=== PATIENT | male | born 2000 | race Caucasian/White ===

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

== ENCOUNTER 2019-01-04 10:01 | Emergency (ER) | payer MEDICAID, SELFPAY ==
[2019-01-04 10:02] VITALS: BP 134/60; PULSE 81; RESP 17; TEMP 36.1; O2SAT 99; BMI 30.4
--- NOTE | 2019-01-04 10:44 | VDLE_ITS ---
Reason For Study: Pain Procedure LEFT Exam performed portable in ED. GSV is normal. A preliminary report was called and/or faxed CFV is compressible, spontaneous, phasic, to Dr. Wade. competent, and demonstrates normal augmentation. FV is compressible, spontaneous, phasic, competent and demonstrates normal augmentation. POP V is compressible, spontaneous, phasic, competent and demonstrates normal augmentation. T/P Trunk is compressible. PTV is compressible. LT PerV is compressible. Hypoechoic, non vascular structure noted Lt Pop Fossa measuring 1.46cm x 1.80cm. Interpretation Summary There is no evidence of left lower extremity deep vein thrombosis. Left great saphenous vein appears patent and compressible segmentally. Left popliteal fossa 1.46 x 1.8cm cystic lesion--possible Cantrell's cyst--clinical correlation would be appropriate. Ordering Physician: Nicole Wade Referring Physician: Agnes Cuellar Performed By: Lisandra Kunz RDCS, RVT
--- NOTE | 2019-01-04 10:55 | RAD_ITS ---
STUDY: X-RAY - LEFT ANKLE REASON FOR EXAM: Male, 18 years old. Left ankle pain and swelling. Lateral bruising. TECHNIQUE: 3 view(s) of the ankle. COMPARISON: None. FINDINGS: Normal visualized distal tibia and fibula. Normal medial and lateral malleoli. Normal tibiotalar articulation and ankle mortise. Normal visualized talus and calcaneus. The visualized subtalar, talonavicular, calcaneocuboid and tarsal articulations are normal. Soft tissue swelling. RAD/Ankle min 3 Views IMPRESSION: Soft tissue swelling. Electronically Signed: Akash Thacker, at 11:20 EDT , Service support ,
--- NOTE | 2019-01-04 11:00 | RAD_ITS ---
STUDY: X-RAY - LEFT FOOT CLINICAL: Male, 18 years old. Medial left foot pain. Lateral bruising. TECHNIQUE: 3 view(s) of the foot. COMPARISON: None. FINDINGS: Normal talus, calcaneus, and tarsal bones. Normal visualized subtalar, talonavicular, calcaneocuboid, tarsal and tarsometatarsal articulations. Normal metatarsi. Normal metatarsophalangeal joint of the great toe. Normal tibial and fibular sesamoid bones. Normal interphalangeal joint of the great toe. Normal phalanges of the great toe. Normal second through fifth metatarsophalangeal joints. Normal interphalangeal joints and phalanges of the lesser toes. The soft tissue structures are unremarkable. RAD/Foot min 3 Views IMPRESSION: Normal x-ray examination of the foot. Electronically Signed: Akash Thacker, at 11:19 EDT , Service support ,
--- NOTE | 2019-01-04 11:05 | RAD_ITS ---
STUDY: X-RAY - LEFT TIBIA AND FIBULA REASON FOR EXAM: Male, 18 years old. Lower extremity swelling. TECHNIQUE: 2 view(s) of the tibia and fibula were obtained. COMPARISON: None. FINDINGS: Normal visualized tibia. Normal visualized fibula. Soft tissue swelling. RAD/Tibia & Fibula 2 Views IMPRESSION: Soft tissue swelling. Electronically Signed: Akash Thacker, at 12:17 EDT , Service support ,
--- NOTE | 2019-01-04 11:12 | ED.DCSUM_ITS ---
- ER Visit Summary Date of Service: 01/04/19 Chief Complaint: Left lower extremity redness History of Present Illness: The patient is a 18 M presenting with left lower extremity redness and swelling. This was noticed by long term staff today. He has a history of autism and is nonverbal. No known injury. They noticed redness and swelling to his left leg today. No other complaints. He is able to ambulate. Physical Examination: Vitals are stable. Patient is afebrile. Alert no acute distress. HEENT exam is unremarkable. Neck is supple. Lungs are clear and equal bilaterally. Heart is regular rate and rhythm. Extremities erythema and swelling to the left anterior lower extremity. Normal distal pulses. Skin is warm and dry. No focal neurologic deficit. Remainder of exam is unremarkable. Emergency Department Course and Treatment: Venous Doppler shows no evidence of DVT. Left foot, ankle, tib-fib x-ray showed soft tissue swelling, no fracture. There was no reported injury. History is limited. He does have some erythema and warmth to the anterior aspect of the left lower extremity. He will be put on Keflex. Advised to ice and elevate. Advised to use Motrin for pain. Advised to watch this closely and return to ED if worsens. Disposition: Discharge home Impression: Left lower extremity swelling This note was generated with [employer] dictation software. It may contain incorrect words, spelling, and punctuation that were not noted in review of the chart prior to signing ED Disposition - Plan for ED Patient: Instructions: CONTUSION, Lower Extremity Prescriptions: Cephalexin [Keflex] 500 mg PO Q6 #40 cap Prescription Printed Referrals: Agnes Cuellar DO [Primary Care Provider] -
--- NOTE | 2019-01-04 12:28 | ED.DEP ---
ED Disposition - Plan for ED Patient: Instructions: CONTUSION, Lower Extremity Prescriptions: Cephalexin [Keflex] 500 mg PO Q6 #40 capsule Referrals: Agnes Cuellar DO [Primary Care Provider] -
[2019-01-04] MEDS: Cephalexin 250 MG Capsule 500 MG PO (13:01)
== END 2019-01-04 13:09 | disposition home or self-care (01) ==
PROVIDERS: Emergency Provider Emergency Medicine; Family Provider Family Medicine; PCP Family Medicine
DX: M79.89 Other specified soft tissue disorders (principal); F84.0 Autistic disorder
CPT/HCPCS: 73590; 73610; 73630; 93971; 99283